=== PATIENT | female | born 2000 | race Caucasian/White ===

== ENCOUNTER 2024-02-20 14:30 | Emergency (ER) | payer BC, SELFPAY ==
[2024-02-20 14:33] VITALS: BP 136/82; PULSE 88; RESP 15; TEMP 36.9; O2SAT 98; BMI 32.9
--- NOTE | 2024-02-20 14:33 | ECG_ITS ---
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
--- NOTE | 2024-02-20 14:44 | ED_ITS ---
HPI - Psych General Chief Complaint: Psychiatric Symptoms Stated Complaint: MENTAL HEALTH EVALUATION Time Seen by Provider: 02/20/24 14:33 Source: Reports patient Mode of arrival: ambulance History of Present Illness HPI Narrative: Patient is a 23-year-old female who presents to the emergency department by EMS for suicidal ideation. She was establishing with a new primary care provider today when she stated that she wants to be . She does not have a suicidal specific plan although the provider from the office reported that the patient stated she wanted to hang herself. Patient states she would never act on her suicidal thoughts. She [facility] currently [facility] in a [facility] and states she feels safe at the [facility] but it does not feel like home. She is very tearful. She has had recent flulike illness that has resolved. She also reports vaginal discharge with unknown STD exposure and would like to be evaluated for this as well. No urinary symptoms, fevers or vomiting. She denies any drug or alcohol ingestion. She is currently taking medication for depression. She was hospitalized for suicidal thoughts years ago but no recent hospitalizations Related Data Home Medications ?Medication ?Instructions ?Recorded ?Confirmed ibuprofen 600 mg tablet 600 mg PO Q6H PRN pain 02/20/24 02/20/24 ondansetron HCl 4 mg tablet 4 mg PO Q12H PRN nausea and 02/20/24 02/20/24 vomiting sertraline 25 mg tablet 25 mg PO Q24H 02/20/24 02/20/24 sertraline 50 mg tablet 50 mg PO Q24H 02/20/24 02/20/24 Allergies Allergy/AdvReac Type Severity Reaction Status Date / Time No Known Drug Allergies Allergy Verified 02/20/24 16:15 Review of Systems ROS Constitutional Denies: fever or chills Ears, nose, mouth, and throat Denies: throat pain or nasal congestion Cardiovascular Denies: chest pain Respiratory Denies: shortness of breath or cough Gastrointestinal Denies: abdominal pain, nausea or vomiting Genitourinary Reports: vaginal discharge; Denies: painful urination or pelvic pain Musculoskeletal Denies: back pain Integumentary/Breast Denies: rash Neurological Denies: headache Hematologic/Lymphatic Denies: easy bruising or easy bleeding Exam Narrative Exam Narrative: Gen.: Awake, alert, in no distress Head: Normocephalic, atraumatic ENT: Moist mucous membranes Respiratory: No respiratory distress, lungs clear bilaterally Cardio: Regular rate and rhythm Extremities: Moves extremities equally, No injury or cutting Psych: Tearful, cooperative Neuro: No focal neuro deficit Skin: Warm, dry, intact Constitutional Vital Signs, click to edit/add: Last Vital Signs Temp 98.5 F 02/20/24 14:33 Pulse 76 02/20/24 16:11 Resp 18 02/20/24 16:11 BP 122/79 02/20/24 16:11 Pulse Ox 98 02/20/24 16:11 O2 Del Method Room Air 02/20/24 14:33 Course Vital Signs Vital signs: Vital Signs Temperature 98.5 F 02/20/24 14:33 Pulse Rate 88 02/20/24 14:33 Respiratory Rate 15 02/20/24 14:33 Blood Pressure 136/82 02/20/24 14:33 Pulse Oximetry 98 02/20/24 14:33 Oxygen Delivery Method Room Air 02/20/24 14:33 Temperature 98.5 F 02/20/24 14:33 Pulse Rate 76 02/20/24 16:11 Respiratory Rate 18 02/20/24 16:11 Blood Pressure 122/79 02/20/24 16:11 Pulse Oximetry 98 02/20/24 16:11 Oxygen Delivery Method Room Air 02/20/24 14:33 MDM - Psych MDM Narrative Medical decision making narrative: Pelvic exam was performed with the patient's consent and request. Pelvic exam was performed with Kapil Jack RN at bedside throughout the duration of the exam. Patient noted to have mild white vaginal discharge with no cervical motion tenderness or pelvic tenderness. Pelvic cultures were obtained. Patient declined empiric treatment for STD exposure. She will wait for the cultures to result. Patient is medically clear for psychiatric evaluation. She is cooperative although tearful in the ER. Labs are stable, patient has mildly low potassium which was given orally in the ER. She is medically cleared for evaluation by psychiatric services. She was referred to counseling services over the phone at [facility], they discussed the patient's presentation with her. She has ongoing longstanding issues with suicidal thoughts. Mental health counseling services does not feel the patient needs to be acutely admitted. She should pursue continued outpatient coun seling. Return to the ER if symptoms change or worsen. Medical Records Attestation: I reviewed the patient's medical records. Lab Data Attestation: I reviewed the patient's lab results. Labs: Lab Results 02/20/24 02/20/24 02/20/24 Range/Units 14:45 14:47 15:00 WBC 6.4 (4.0-11.0) 10^3/uL RBC 4.57 (4.20-5.40) 10^6/uL Hgb 13.2 (12.0-16.0) g/dL Hct 39.6 (36.0-48.0) % MCV 86.7 (81.0-99.0) fL MCH 28.9 (26.7-34.0) pg MCHC 33.3 (29.9-35.2) g/dL RDW 12.3 (11.0-15.0) % Plt Count 186 (150-450) 10^3/uL MPV 12.5 (9.5-13.5) fL Neut % (Auto) 52.6 (43.0-75.0) % Lymph % (Auto) 34.3 (20.5-60.0) % [place] % (Auto) 11.3 (1.7-12.0) % Eos % (Auto) 1.4 (0.9-7.0) % Baso % (Auto) 0.2 (0.2-2.0) % Neut # (Auto) 3.3 (1.4-6.5) 10^3/uL Lymph # (Auto) 2.2 (1.2-3.8) 10^3/uL [place] # (Auto) 0.7 (0.3-0.8) 10^3/uL Eos # (Auto) 0.1 (0.0-0.7) 10^3/uL Baso # (Auto) 0.0 (0.0-0.1) 10^3/uL Abs Immat Gran (auto) 0.01 (0.00-0.03) 10^3/uL Imm/Tot Granulo (auto) 0.2 (0.0-0.5) % Sodium 138 (136-145) mmol/L Potassium 3.0 L (3.5-5.1) mmol/L Chloride 103 (98-107) mmol/L Carbon Dioxide 25.5 (21.0-32.0) mmol/L Anion Gap 12.5 BUN 9.0 (7.0-18.0) mg/dL Creatinine 0.80 (0.55-1.02) mg/dL Est GFR ( Amer) >60 (>=60) Est GFR (Non-Af Amer) >60 (>=60) BUN/Creatinine Ratio 11.2 Glucose 103 (74-106) mg/dL Calcium 8.6 (8.5-10.1) mg/dL Total Bilirubin 0.4 (0.2-1.0) mg/dL AST 17 (15-37) U/L ALT 23 (14-59) U/L Alkaline Phosphatase 55 (46-116) U/L Total Protein 8.0 (6.4-8.2) g/dL Albumin 3.8 (3.4-5.0) g/dL Globulin 4.2 g/dL Albumin/Globulin Ratio 0.9 Serum HCG, Qual Negative (NEGATIVE) Urine Color Yellow (YELLOW) Urine Clarity Clear (CLEAR) Urine pH 6.5 (5.0-9.0) Ur Specific [place] 1.025 (1.005-1.025) Urine Protein Trace (NEG/TRACE) mg/dL Urine Glucose (UA) Negative (NEGATIVE) mg/dL Urine Ketones Trace A (NEGATIVE) mg/dL Urine Occult Blood Negative (NEGATIVE) Urine Nitrite Negative (NEGATIVE) Urine Bilirubin Small A (NEGATIVE) Urine Urobilinogen 2.0 A (0.2-1.0) EU/dL Ur Leukocyte Esterase Negative (NEGATIVE) Salicylates <2.8 (<=19.9) mg/dL Urine Opiates Screen (NEGATIVE) Ur Buprenorphine Scrn (NEGATIVE) Ur Oxycodone Screen (NEGATIVE) Urine Methadone Screen (NEGATIVE) Acetaminophen <2.0 L (10.0-30.0) ug/mL Ur Barbiturates Screen (NEGATIVE) U Tricyclic Antidepress (NEGATIVE) Ur Phencyclidine Scrn (NEGATIVE) Ur Amphetamines Screen (NEGATIVE) U Methamphetamines Scrn (NEGATIVE) U Benzodiazepines Scrn (NEGATIVE) Urine Cocaine Screen (NEGATIVE) U Cannabinoids Screen (NEGATIVE) Ethanol Quant <3 mg/dL SARS-CoV-2 Ag (CV2AG) Negative (NEGATIVE) 02/20/24 Range/Units 15:05 WBC (4.0-11.0) 10^3/uL RBC (4.20-5.40) 10^6/uL Hgb (12.0-16.0) g/dL Hct (36.0-48.0) % MCV (81.0-99.0) fL MCH (26.7-34.0) pg MCHC (29.9-35.2) g/dL RDW (11.0-15.0) % Plt Count (150-450) 10^3/uL MPV (9.5-13.5) fL Neut % (Auto) (43.0-75.0) % Lymph % (Auto) (20.5-60.0) % [place] % (Auto) (1.7-12.0) % Eos % (Auto) (0.9-7.0) % Baso % (Auto) (0.2-2.0) % Neut # (Auto) (1.4-6.5) 10^3/uL Lymph # (Auto) (1.2-3.8) 10^3/uL [place] # (Auto) (0.3-0.8) 10^3/uL Eos # (Auto) (0.0-0.7) 10^3/uL Baso # (Auto) (0.0-0.1) 10^3/uL Abs Immat Gran (auto) (0.00-0.03) 10^3/uL Imm/Tot Granulo (auto) (0.0-0.5) % Sodium (136-145) mmol/L Potassium (3.5-5.1) mmol/L Chloride (98-107) mmol/L Carbon Dioxide (21.0-32.0) mmol/L Anion Gap BUN (7.0-18.0) mg/dL Creatinine (0.55-1.02) mg/dL Est GFR ( Amer) (>=60) Est GFR (Non-Af Amer) (>=60) BUN/Creatinine Ratio Glucose (74-106) mg/dL Calcium (8.5-10.1) mg/dL Total Bilirubin (0.2-1.0) mg/dL AST (15-37) U/L ALT (14-59) U/L Alkaline Phosphatase (46-116) U/L Total Protein (6.4-8.2) g/dL Albumin (3.4-5.0) g/dL Globulin g/dL Albumin/Globulin Ratio Serum HCG, Qual (NEGATIVE) Urine Color (YELLOW) Urine Clarity (CLEAR) Urine pH (5.0-9.0) Ur Specific [place] (1.005-1.025) Urine Protein (NEG/TRACE) mg/dL Urine Glucose (UA) (NEGATIVE) mg/dL Urine Ketones (NEGATIVE) mg/dL Urine Occult Blood (NEGATIVE) Urine Nitrite (NEGATIVE) Urine Bilirubin (NEGATIVE) Urine Urobilinogen (0.2-1.0) EU/dL Ur Leukocyte Esterase (NEGATIVE) Salicylates (<=19.9) mg/dL Urine Opiates Screen Negative (NEGATIVE) Ur Buprenorphine Scrn Negative (NEGATIVE) Ur Oxycodone Screen Negative (NEGATIVE) Urine Methadone Screen Negative (NEGATIVE) Acetaminophen (10.0-30.0) ug/mL Ur Barbiturates Screen Negative (NEGATIVE) U Tricyclic Antidepress Negative (NEGATIVE) Ur Phencyclidine Scrn Negative (NEGATIVE) Ur Amphetamines Screen Negative (NEGATIVE) U Methamphetamines Scrn Negative (NEGATIVE) U Benzodiazepines Scrn Negative (NEGATIVE) Urine Cocaine Screen Negative (NEGATIVE) U Cannabinoids Screen Positive A (NEGATIVE) Ethanol Quant mg/dL SARS-CoV-2 Ag (CV2AG) (NEGATIVE) Discharge Plan Discharge Stand Alone Forms: Portal Instructions Chief Complaint: Psychiatric Symptoms Clinical Impression: Depression, Vaginitis Patient Disposition: Home, Self-Care Time of Disposition Decision: 16:17 Condition: Good Prescriptions / Home Meds: No Action sertraline 25 mg tablet 25 mg PO Q24H sertraline 50 mg tablet 50 mg PO Q24H ibuprofen 600 mg tablet 600 mg PO Q6H PRN (Reason: pain) ondansetron HCl 4 mg tablet 4 mg PO Q12H PRN (Reason: nausea and vomiting) Print Language: Spanish Instructions: Depression (ED), Vaginal Discharge (ED) Referrals: Physician,Non-Staff, MD [Primary Care Provider] - 1 week
[2024-02-20 14:54] LABS: Basophils Percent Auto 0.2 % (0.2-2.0); Eosinophils Absolute Auto 0.1 10^3/uL (0.0-0.7); Eosinophils Percent Auto 1.4 % (0.9-7.0); Hematocrit 39.6 % (36.0-48.0); Hemoglobin 13.2 g/dL (12.0-16.0); Immature Granulocytes Abs Auto 0.01 10^3/uL (0.00-0.03); Immature Granulocytes Pct Auto 0.2 % (0.0-0.5); Lymphocytes Absolute Auto 2.2 10^3/uL (1.2-3.8); Lymphocytes Percent Auto 34.3 % (20.5-60.0); Mean Corpuscular HGB Conc 33.3 g/dL (29.9-35.2); Mean Corpuscular Hemoglobin 28.9 pg (26.7-34.0); Mean Corpuscular Volume 86.7 fL (81.0-99.0); Mean Platelet Volume 12.5 fL (9.5-13.5); Monocytes Absolute Auto 0.7 10^3/uL (0.3-0.8); Monocytes Percent Auto 11.3 % (1.7-12.0); Neutrophils Absolute Auto 3.3 10^3/uL (1.4-6.5); Neutrophils Percent Auto 52.6 % (43.0-75.0); Platelet Count 186 10^3/uL (150-450); Red Blood Count 4.57 10^6/uL (4.20-5.40); Red Cell Distribution Width 12.3 % (11.0-15.0); White Blood Count 6.4 10^3/uL (4.0-11.0)
[2024-02-20 15:05] LABS: SARS-CoV-2 Ag NEGATIVE (NEGATIVE)
[2024-02-20 15:18] LABS: HCG Qualitative NEGATIVE (NEGATIVE)
[2024-02-20 15:27] LABS: Alanine Aminotransferase 23 U/L (14-59); Albumin Globulin Ratio 0.9; Albumin Level 3.8 g/dL (3.4-5.0); Alkaline Phosphatase 55 U/L (46-116); Anion Gap 12.5; Aspartate Amino Transferase 17 U/L (15-37); BUN Creatinine Ratio 11.2; Bilirubin Total 0.4 mg/dL (0.2-1.0); Calcium 8.6 mg/dL (8.5-10.1); Carbon Dioxide 25.5 mmol/L (21.0-32.0); Chloride 103 mmol/L (98-107); Estimated GFR (African America >60 (>=60); Estimated GFR (Non-African Ame >60 (>=60); Globulin 4.2 g/dL; Glucose 103 mg/dL (74-106); Salicylate <2.8 mg/dL (<=19.9); Sodium 138 mmol/L (136-145)
[2024-02-20 15:31] LABS: Bilirubin Urine SMALL (NEGATIVE); Blood Urine NEGATIVE (NEGATIVE); Clarity Urine CLEAR (CLEAR); Color Urine YELLOW (YELLOW); Glucose Urine UA NEGATIVE (NEGATIVE); Ketones Urine TRACE mg/dL (NEGATIVE); Leukocyte Esterase Urine NEGATIVE (NEGATIVE); Nitrite Urine NEGATIVE (NEGATIVE); Protein Urine TRACE mg/dL (NEG/TRACE); Specific Gravity Urine 1.025 (1.005-1.025); pH Urine 6.5 (5.0-9.0)
[2024-02-20 15:37] LABS: Urine Microscopic Indicated NO
[2024-02-20 15:37] LABS: Acetaminophen <2.0 ug/mL (10.0-30.0)
[2024-02-20 15:38] LABS: Ethanol <3 mg/dL
[2024-02-20 15:48] LABS: Amphetamine Screen Urine NEGATIVE (NEGATIVE); Barbiturates Screen Urine NEGATIVE (NEGATIVE); Benzodiazepines Screen Urine NEGATIVE (NEGATIVE); Buprenorphine Screen Urine NEGATIVE (NEGATIVE); Cannabinoid Screen Urine POSITIVE (NEGATIVE); Cocaine Screen Urine NEGATIVE (NEGATIVE); Methadone Screen Urine NEGATIVE (NEGATIVE); Methamphetamines Screen Urine NEGATIVE (NEGATIVE); Opiate Screen Urine NEGATIVE (NEGATIVE); Oxycodone Screen Urine NEGATIVE (NEGATIVE); Phencyclidine Screen Urine NEGATIVE (NEGATIVE); Tricyclic Antidepressant Urine NEGATIVE (NEGATIVE)
[2024-02-20 16:11] VITALS: BP 122/79; PULSE 76; RESP 18; O2SAT 98
[2024-02-22 06:09] LABS: Neisseria gonorrhoeae, NAA Negative (Negative)
== END 2024-02-20 16:28 | disposition home or self-care (01) ==
PROVIDERS: Physician Assistant; Emergency Provider Emergency Medicine Emergency Medical Services
DX: F32.A Depression, unspecified (principal); N76.0 Acute vaginitis; R45.851 Suicidal ideations; Z20.822 Contact with and (suspected) exposure to COVID-19; Z59.01 Sheltered homelessness; Z79.899 Other long term (current) drug therapy
CPT/HCPCS: 36415; 80053; 80179; 80307; 80320; 80329; 81003; 84703; 85025; 87210; 87491; 87591; 87811; 93005; 99284